=== PATIENT | male | born 1965 | race Caucasian/White ===

== ENCOUNTER 2023-10-20 12:14 | Outpatient (REF) | payer OTHER, SELFPAY ==
[2023-10-20 12:55] LABS: MANUAL DIFF FLAG NO
[2023-10-20 13:09] LABS: Basophils Absolute Auto 0.1 X10*3/uL (0.0-0.2); Basophils Percent Auto 0.8 % (0-2); Eosinophils Absolute Auto 0.1 X10*3/uL (0.0-0.4); Eosinophils Percent Auto 1.6 % (0-4); Hematocrit 50.3 % (42.0-52.0); Hemoglobin 16.9 g/dl (14.0-18.0); Imm Gran Abs Auto 0.03 X10*3/uL (0.00-0.03); Imm Gran Pct Auto 0.4 % (0.0-0.4); Lymphocytes Absolute Auto 1.3 X10*3/uL (1.2-4.9); Lymphocytes Percent Auto 17.5 % (20-40); Mean Corpuscular HGB Conc 33.6 g/dl (31.0-36.0); Mean Corpuscular Hemoglobin 28.9 pg (27.0-33.0); Mean Corpuscular Volume 86.1 fL (80.0-98.0); Mean Platelet Volume 10.4 fL (9.4-12.4); Monocytes Absolute Auto 0.5 X10*3/uL (0.1-1.2); Monocytes Percent Auto 6.8 % (2-11); Neutrophils Absolute Auto 5.4 x10*3/uL (2.0-8.3); Neutrophils Percent Auto 72.9 % (45-73); Platelet Count 135 X10*3/uL (160-400); Red Blood Count 5.84 X10*6/uL (4.60-5.80); Red Cell Distribution Width 12.8 % (11.0-16.0); White Blood Count 7.4 X10*3/uL (4.8-10.8)
[2023-10-20 13:31] LABS: Appearance Urine Clear; Color Urine Yellow; Glucose Urine UA >=1000 mg/dL (Negative); Leukocyte Esterase Urine Negative (Negative); Nitrite Urine Negative (Negative); PH 5.5 (5.0-9.0); Specific Gravity - Urine 1.025 (1.005-1.025); UMIC TRIGGER UACC YES; Urine Blood Trace (Negative); Urine Ketones Trace mg/dL (Negative); Urine Protein 100 (2+) mg/dL (Neg-Trace)
[2023-10-20 13:49] LABS: Bacteria Urine None Seen (None Seen); Hyaline Casts Urine 0-2 /LPF (0-2); RBC Urine 0-2 /HPF (0-2); Squamous Epithelial Cell Urine 0-2 /HPF (0-2); WBC Urine 0-5 /HPF (0-5)
[2023-10-20 13:53] LABS: Alanine Aminotransferase 35 U/L (0-40); Albumin Level 4.2 g/dL (3.5-5.0); Alkaline Phosphatase 106 U/L (39-117); Anion Gap 15 (12-20); Aspartate Amino Transferase 36 U/L (5-37); Bilirubin Total 0.9 mg/dL (0.0-1.0); Blood Urea Nitrogen 40 mg/dL (9-16); Calcium 8.9 mg/dL (8.4-10.2); Carbon Dioxide 20 mmol/L (22-29); Chloride 96 mmol/L (96-108); Estimated Glomerular Filt Rate 26; Potassium 3.9 mmol/L (3.3-5.1); Sodium 127 mmol/L (135-145); Total Protein 7.3 g/dL (6.5-8.0)
[2023-10-20 14:15] LABS: Glucose Random 776 mg/dL (60-115)
[2023-10-20 14:40] LABS: Creatinine Urine 33.55 mg/dL; Microalbum/Creatinine Ratio Ur 1314.4 ug/mg cr (<30)
== END 2023-10-20 12:15 | disposition home or self-care (01) ==
LOC: HO.HHCL 12:14
PROVIDERS: Visit Provider Internal Medicine Geriatric Medicine
DX: E11.65 Type 2 diabetes mellitus with hyperglycemia (principal); Z79.4 Long term (current) use of insulin; Z87.19 Personal history of other diseases of the digestive system; F41.8 Other specified anxiety disorders
CPT/HCPCS: 36415; 80053; 81001; 82043; 82570; 85025

== ENCOUNTER 2024-01-05 14:28 | Outpatient (AMB) | payer OTHER, SELFPAY ==
[2024-01-05 14:40] VITALS: BP 84/60; PULSE 71; O2SAT 96; BMI 28.2
--- NOTE | 2024-01-05 14:40 | HO.NEPHOV_ITS ---
Vital Signs 01/05/24 14:40 Height 5 ft 6 in Weight 175 lb BMI 28.2 BP 84/60 L Blood Pressure Location Lt brachial Position Sitting Pulse 71 Pulse Source Pulse Oximeter Pulse Oximetry (%) 96 Oxygen Delivery Method Room Air Intake Visit Reasons: CKD STG3A/ Conf Medical Record Consultant Required: Yes Medical Record Consultant Services: Medical Record Consultant Present Medical Record Consultant Name: Luis [email or web address] Accompanied by: Spouse Allergies Penicillins Allergy (Verified 01/05/24 14:43) Unknown Medication List - Last Reconciled 01/05/24 by Domenico May MD amitriptyline 10 mg PO DAILY aspirin 1 tab PO BEDTIME buspirone 10 mg PO BID calcifediol ER (Rayaldee) 30 mcg PO DAILY cyclobenzaprine 10 mg PO BEDTIME insulin degludec (Tresiba FlexTouch U-200 insulin) 54 units subcut DAILY insulin lispro (Humalog KwikPen (U-100) Insulin) 1 sliding scale dose subcut USEASDIRECTD bejpbz-hvecbhlq-fuetinz 24,000-76,000 -120,000 unit (Creon) 2 caps PO QAM losartan 25 mg PO DAILY metoprolol tartrate 25 mg PO oxybutynin chloride 5 mg PO DAILY pantoprazole 40 mg PO DAILY rosuvastatin 10 mg PO DAILY sertraline 100 mg PO DAILY tamsulosin 0.4 mg PO DAILY HPI Comments Details: Douglas is a pleasant middle-aged man with a history of longstanding h ypertension diabetes mellitus referred for chronic kidney disease. ,In 2023 BUN creatinine were 40 and 2.42 with a sodium of 127. Corresponding serum glucose was 776. He has been referred for further evaluation of chronic kidney disease and hyponatremia. He has had diabetes mellitus for quite some time and blood sugar has been suboptimal. He also has hypertension. He is undergoing cardiac evaluation for chest pain. Today he has no headache nausea vomiting. No chest pain No palpitations or sweating. No urinary symptoms no polyuria polydipsia. No weight loss. [facility] Medical History (Updated 01/05/24 @ 14:54 by Domenico May MD) High cholesterol Hypertension Diabetes Surgical History (Updated 01/05/24 @ 14:47 by Maddie Calvin MA) History of pancreatic surgery Hx of bariatric surgery Family History (Updated 01/05/24 @ 14:47 by Maddie Calvin MA) Father Hypertension Diabetes Brother Hypertension Diabetes Mother Diabetes Hypertension Kidney disease Dialysis patient Social History (Updated 01/05/24 @ 14:45 by Maddie Calvin MA) Alcohol intake: never Patient Tobacco Use Status: Never used Tobacco Physical Exam Vital Signs: Last Vital Signs Pulse 71 01/05/24 14:40 BP 84/60 L 01/05/24 14:40 Pulse Ox 96 01/05/24 14:40 Oxygen Delivery Method Room Air 01/05/24 14:40 BMI result Body Mass Index 28.2 Const General: comfortable; No acute distress Orientation/consciousness: patient oriented x3 Eyes General: appearance normal, both eyes and all related structures Visual Holt: normal visual holt by confrontation Neck Neck: Yes supple and Yes no JVD Resp Effort & Inspection: normal respiratory effort and respiratory effort not decreased Auscultation: rhonchi Cardio Palpation: no palpable S3 and no palpable S4 Heart sounds: no rubs GI Inspection: Yes normal to inspection Palpation (GI): Soft to palpation Percussion: Yes normal to percussion Auscultation: normal bowel sounds General: Yes no CVA tenderness Back/Spine/Pelvis Back: no CVA tenderness Skin General skin exam: no petechiae and no purpura Neuro General: patient oriented x3 and no focal motor deficits Extrem General: No clubbing and No edema Results Reviewed Nephrology Results: Hgb 16.1 g/dl (14.0-18.0) 01/05/24 WBC 6.5 X10*3/uL (4.8-10.8) 01/05/24 Plt Count 126 X10*3/uL (160-400) L 01/05/24 Sodium 133 mmol/L (135-145) L 01/05/24 Potassium 5.1 mmol/L (3.3-5.1) 01/05/24 Chloride 104 mmol/L (96-108) 01/05/24 Carbon Dioxide 23 mmol/L (22-29) 01/05/24 BUN 28 mg/dL (9-16) H 01/05/24 Creatinine 2.39 mg/dL (0.5-1.4) H 01/05/24 Calcium 9.1 mg/dL (8.4-10.2) 01/05/24 PTH Intact 234.3 pg/mL (8.7-77.1) H 01/05/24 Urine Protein 300 (3+) mg/dL (Neg-Trace) H 01/05/24 Urine Creatinine 122.83 mg/dL 01/05/24 Assessment & Plan Assessment & Plan (1) Hypertension: Code(s): I10 - Essential (primary) hypertension Category: Medical (2) Diabetes: Code(s): E11.9 - Type 2 diabetes mellitus without complications Category: Medical (3) CKD (chronic kidney disease): Code(s): N18.9 - Chronic kidney disease, unspecified Category: Medical Plan Douglas has CKD 4 most likely due to underlying hypertensive diabetic kidney disease. Initiated workup for CKD. Urine studies and renal ultrasonogram as ordered below. Goal is to slow the portion disease Maintain blood pressure less than 130/80. Today blood pressure was rather low. I would hold the losartan. Maintain hemoglobin A1c less than 7%. The hyponatremia seen in October was most likely pseudo hyponatremia due to hyperglycemia. Corrected serum sodium is normal. I will recheck serum sodium today. After the baseline workup is completed returned to office in the next few weeks I will keep you updated Orders: Orders Basic Metabolic Panel 01/05/24 N18.9 - Chronic kidney disease, unspecified Creatinine Urine 01/05/24 N18.9 - Chronic kidney disease, unspecified Total Protein Urine Random 01/05/24 N18.9 - Chronic kidney disease, unspecified UA and rflx microscopic 01/05/24 N18.9 - Chronic kidney disease, unspecified Uric Acid 01/05/24 N18.9 - Chronic kidney disease, unspecified US renal doppler 01/05/24 N18.9 - Chronic kidney disease, unspecified Complete Blood Count Auto Diff 01/05/24 N18.9 - Chronic kidney disease, unspecified Parathyroid Hormone Intact 01/05/24 N18.9 - Chronic kidney disease, unspecified Vitamin D 25-OH (D2 and D3) 01/05/24 N18.9 - Chronic kidney disease, unspecified Coding Level of Care Code New Pt Level 4 (53584) Diagnoses Hypertension I10 Diabetes E11.9 CKD (chronic kidney disease) N18.9
== END 2024-01-05 15:07 | disposition home or self-care (01) ==
LOC: HO.HKAM 14:28
PROVIDERS: PCP Internal Medicine Geriatric Medicine; Referring Provider Internal Medicine Geriatric Medicine; Visit Provider Internal Medicine Hypertension Specialist
DX: I12.9 Hypertensive chronic kidney disease with stage 1 through stage 4 chronic kidney disease, or unspecified chronic kidney disease (principal); E11.22 Type 2 diabetes mellitus with diabetic chronic kidney disease; N18.31 Chronic kidney disease, stage 3a
CPT/HCPCS: 99204

== ENCOUNTER → 2024-01-05 14:28 | Outpatient (BNVA) | payer OTHER, SELFPAY | PROVIDERS: PCP Internal Medicine Geriatric Medicine; Referring Provider Internal Medicine Geriatric Medicine; Visit Provider Internal Medicine Hypertension Specialist | DX: E11.22 Type 2 diabetes mellitus with diabetic chronic kidney disease (principal); I12.9 Hypertensive chronic kidney disease with stage 1 through stage 4 chronic kidney disease, or unspecified chronic kidney disease; N18.9 Chronic kidney disease, unspecified | CPT/HCPCS: 99202 ==

== ENCOUNTER 2024-01-05 15:15 | Outpatient (REF) | payer OTHER, SELFPAY ==
[2024-01-05 16:02] LABS: MANUAL DIFF FLAG NO
[2024-01-05 16:17] LABS: Appearance Urine Clear; Color Urine Yellow; Glucose Urine UA >=1000 mg/dL (Negative); Leukocyte Esterase Urine Negative (Negative); Nitrite Urine Negative (Negative); PH 5.5 (5.0-9.0); UMIC TRIGGER UA YES; Urine Blood Trace (Negative); Urine Ketones Negative (Negative); Urine Protein 300 (3+) mg/dL (Neg-Trace)
[2024-01-05 16:21] LABS: Bacteria Urine None Seen (None Seen); Hyaline Casts Urine 0-2 /LPF (0-2); RBC Urine 0-2 /HPF (0-2); Squamous Epithelial Cell Urine 0-2 /HPF (0-2); WBC Urine 0-5 /HPF (0-5)
[2024-01-05 16:29] LABS: Basophils Percent Auto 0.6 % (0-2); Eosinophils Absolute Auto 0.1 X10*3/uL (0.0-0.4); Eosinophils Percent Auto 1.9 % (0-4); Hematocrit 48.7 % (42.0-52.0); Hemoglobin 16.1 g/dl (14.0-18.0); Imm Gran Abs Auto 0.02 X10*3/uL (0.00-0.03); Imm Gran Pct Auto 0.3 % (0.0-0.4); Lymphocytes Absolute Auto 1.1 X10*3/uL (1.2-4.9); Lymphocytes Percent Auto 16.4 % (20-40); Mean Corpuscular HGB Conc 33.1 g/dl (31.0-36.0); Mean Corpuscular Hemoglobin 28.4 pg (27.0-33.0); Mean Corpuscular Volume 85.9 fL (80.0-98.0); Mean Platelet Volume 10.4 fL (9.4-12.4); Monocytes Absolute Auto 0.4 X10*3/uL (0.1-1.2); Monocytes Percent Auto 6.5 % (2-11); Neutrophils Absolute Auto 4.8 x10*3/uL (2.0-8.3); Neutrophils Percent Auto 74.3 % (45-73); Platelet Count 126 X10*3/uL (160-400); Red Blood Count 5.67 X10*6/uL (4.60-5.80); Red Cell Distribution Width 12.4 % (11.0-16.0); White Blood Count 6.5 X10*3/uL (4.8-10.8)
[2024-01-05 17:30] LABS: Anion Gap 11 (12-20); Blood Urea Nitrogen 28 mg/dL (9-16); Calcium 9.1 mg/dL (8.4-10.2); Carbon Dioxide 23 mmol/L (22-29); Chloride 104 mmol/L (96-108); Estimated Glomerular Filt Rate 28; Glucose Random 383 mg/dL (60-115); Potassium 5.1 mmol/L (3.3-5.1); Sodium 133 mmol/L (135-145); Uric Acid 7.9 mg/dL (3.4-7.0)
[2024-01-05 17:33] LABS: Creatinine Urine 122.83 mg/dL
[2024-01-05 17:52] LABS: Parathyroid Hormone Intact 234.3 pg/mL (8.7-77.1)
[2024-01-05 18:19] LABS: Total Protein Urine Random 234 mg/dL (<12)
[2024-01-11 14:28] LABS: Vitamin D 25-OH, D2 <4 ng/mL; Vitamin D 25-OH, D3 32 ng/mL; Vitamin D 25-OH, Total 32 ng/mL (30-100)
== END 2024-01-05 15:16 | disposition home or self-care (01) ==
LOC: HO.HHCL 15:15
PROVIDERS: Visit Provider Internal Medicine Hypertension Specialist
DX: E11.22 Type 2 diabetes mellitus with diabetic chronic kidney disease (principal); I12.9 Hypertensive chronic kidney disease with stage 1 through stage 4 chronic kidney disease, or unspecified chronic kidney disease; N18.4 Chronic kidney disease, stage 4 (severe); Z79.4 Long term (current) use of insulin
CPT/HCPCS: 36415; 80048; 81001; 82306; 82570; 83970; 84156; 84550; 85025; 99202

== ENCOUNTER 2024-01-14 09:37 | Outpatient (REF) | payer OTHER, SELFPAY ==
--- NOTE | ~2024-01-14 | US_ITS ---
EXAMINATION: ULTRASOUND RENAL WITH DOPPLER CLINICAL INFORMATION: Chronic kidney disease. COMPARISON: None. TECHNIQUE: Real-time grayscale, color Doppler, and duplex Doppler evaluation of the kidneys and renal vasculature was performed. FINDINGS: RENAL MEASUREMENTS: Right: 11.1 x 5.9 x 5.5 cm (Sag x AP x TV) Left: 12.3 x 5.0 x 4.6 cm (Sag x AP x TV) The renal parenchyma appears normal. Multiple bilateral renal cysts are seen, the largest on the right at the upper pole measuring 4.2 cm and on the left at the upper pole measuring 3.3 cm. These are simple cysts which require no imaging follow-up. No hydronephrosis or nephrolithiasis. DOPPLER INTERROGATION: Aorta: 85.7 cm/sec Right Main Renal Artery: Proximal: 97.2 cm/sec Mid: 61.8 cm/sec Distal: 64.8 cm/sec Left Main Renal Artery: Proximal: 75.5 cm/sec Mid: 81.1 cm/sec Distal: 40.7 cm/sec Renal-Aortic Ratio (RAR): Right: 1.1 Left: 0.9 Bilateral upper pole, interpolar and lower pole [segmental] arteriolar resistive indices are within normal limits. Bilateral upper pole, interpolar and lower pole [segmental] arteriolar pulse doppler waveforms are unremarkable, with uniformly rapid upstrokes and no parvus et tardus configuration. US/US renal doppler IMPRESSION: Unremarkable examination, without hemodynamically significant renal artery stenosis seen bilaterally. Electronically signed by: Renato Bolton MD 02/22/2024 05:11 PM [facility]
== END 2024-01-14 09:38 | disposition home or self-care (01) ==
LOC: HO.US 09:37
PROVIDERS: PCP Internal Medicine Geriatric Medicine; Visit Provider Internal Medicine Hypertension Specialist
DX: N18.9 Chronic kidney disease, unspecified (principal)
CPT/HCPCS: 93975